=== PATIENT | female | born 1975 | race Two or more races ===

== ENCOUNTER 2025-03-16 08:00 | Outpatient (CLI) | payer OTHER ==
[~2025-03-16] VITALS: Ht 157.5 cm; Wt 72.6 kg
[2025-03-16] MEDS ORDERED: TENORMIN50 M1 PO (14:27)
[2025-03-16 15:23] LABS: RH POSITIVE
== END 2025-03-16 08:01 | disposition home or self-care (01) ==
LOC: LAB 08:00 → EDSTATUS 12:15 → SURG 12:15
PROVIDERS: ATTEND Obstetrics & Gynecology Gynecology
DX: N84.0 Polyp of corpus uteri (principal); N94.4 Primary dysmenorrhea; N83.202 Unspecified ovarian cyst, left side; K57.20 Diverticulitis of large intestine with perforation and abscess without bleeding

== ENCOUNTER 2025-07-13 10:30 | Inpatient (IN) | payer OTHER ==
[~2025-07-13] VITALS: Ht 157.5 cm; Wt 73.5 kg
[~2025-07-13 10:30] MED LIST: TENORMIN50 M1 PO
[2025-07-19] MEDS ORDERED: CEFTRIAXONE SODIUM 2,000 MG VIAL ONE (09:12)
[2025-07-19] MEDS ORDERED: METRONIDAZOLE/SODIUM CHLORIDE 500 MG/100 ML PIGGYBACK IV ONE ×2 (09:12→13:00)
[2025-07-19] MEDS ORDERED: POVIDONE-IODINE 118 ML BOTT TOP ONE ×2 (09:12→13:00)
[2025-07-19] MEDS ORDERED: SUGAMMADEX SODIUM 200 MG/2 ML VIAL IV ONE ×2 (11:21→13:00)
[2025-07-19] MEDS ORDERED: VISTASEAL DUAL APPICATOR 1 EACH APPL TOP ONE ×2 (11:21→13:00)
[2025-07-19] MEDS ORDERED: THROMBIN,HU/FIBRINOGEN/CALCIUM 10 ML SYRINGE TOP ONE ×2 (11:21→13:00)
[2025-07-19] MEDS ORDERED: CEFTRIAXONE SODIUM 2,000 MG VIAL IV ONE (13:00)
[2025-07-19] MEDS ORDERED: MORPHINE SULFATE 4 MG/ML CARTRIDGE IV PRN (14:45)
[2025-07-19] MEDS ORDERED: OxyCODONE HCL 5 MG TABLET (ROXICODONE) PO PRN (14:45)
[2025-07-19] MEDS ORDERED: RINGERS SOLUTION,LACTATED 1,000 ML IV SCH (14:45)
[2025-07-19] MEDS ORDERED: ONDANSETRON HCL 2 MG/ML VIAL IV PRN (14:45)
[2025-07-19] MEDS ORDERED: ONDANSETRON HCL 2 MG/ML VIAL ONE (15:22)
[2025-07-19] MEDS ORDERED: ENALAPRILAT DIHYDRATE 1.25 MG/ML VIAL IV PRN (15:30)
[2025-07-19] MEDS ORDERED: PROMETHAZINE HCL 25 MG/ML AMPUL ONE ×2 (16:11→16:19)
[2025-07-19] MEDS ORDERED: PANTOPRAZOLE SODIUM 40 MG/VIAL VIAL ONE (16:22)
[2025-07-19] MEDS ORDERED: PANTOPRAZOLE SODIUM 40 MG/VIAL VIAL IV ONE (16:45)
[2025-07-19] MEDS ORDERED: HYOSCYAMINE SULFATE 0.125 MG TAB.SUBL SL SCH (17:00)
[2025-07-19] MEDS ORDERED: SIMETHICONE 125 MG CAPSULE PO SCH (17:00)
[2025-07-19] MEDS ORDERED: GABAPENTIN 300 MG CAPSULE PO SCH (17:00)
[2025-07-19 19:35] LABS: BASO % 0.2 % (0.1-1.2); EOS # 0.00 (0.04-0.54); EOS % 0.0 % (0.7-7.0); LYMPH # 0.53 (1.18-3.74); LYMPH % 2.3 % (19.3-53.1); MEAN PLATELET VOLUME 9.40 fl (9.4-12.4); MONO # 1.01 (0.24-0.82); MONO % 4.4 % (4.7-12.5); NEUT # 21.04 (1.56-6.13); NEUT % 92.7 % (34.0-71.1); RED CELL DISTRIBUTION WIDTH 15.8 % (11.6-14.4)
[2025-07-19] MEDS ORDERED: ACETAMINOPHEN 500 MG GEL..CAP PO SCH (20:00)
[2025-07-19 20:31] VITALS: BP 145/80
[2025-07-19] MEDS ORDERED: CELECOXIB 200 MG CAPSULE PO SCH (21:00)
[2025-07-19] MEDS ORDERED: FAMOTIDINE/PF 20 MG/2 ML VIAL IV PUSH SCH (21:00)
[2025-07-20 00:39] VITALS: BP 152/99; O2SAT 99
[2025-07-20 00:40] VITALS: BP 160/80
[2025-07-20 04:00] VITALS: BP 135/86
[2025-07-20 06:50] LABS: BASO % 0.3 % (0.1-1.2); EOS # 0.01 (0.04-0.54); EOS % 0.1 % (0.7-7.0); LYMPH # 1.02 (1.18-3.74); LYMPH % 5.4 % (19.3-53.1); MEAN PLATELET VOLUME 9.60 fl (9.4-12.4); MONO # 1.01 (0.24-0.82); MONO % 5.4 % (4.7-12.5); NEUT # 16.58 (1.56-6.13); NEUT % 88.5 % (34.0-71.1); RED CELL DISTRIBUTION WIDTH 15.5 % (11.6-14.4)
[2025-07-20 07:19] LABS: BUN CREA RATIO 8.0 (7.0-25.0); CREATININE SERUM 0.52 mg/dL (0.55-1.02); GFR 124.82; GLUCOSE FASTING 120.0 mg/dL (65-100); OSMOLALITY SERUM 276.0 MOSM/KG (275-295)
[2025-07-20 08:00] VITALS: BP 111/74
[2025-07-20] MEDS ORDERED: ATENOLOL 50 MG TABLET PO SCH (09:00)
[2025-07-20] MEDS ORDERED: ENOXAPARIN SODIUM 40 MG/0.4 ML SYRINGE SUBCUTANEO SCH (17:00)
[2025-07-20 17:01] VITALS: BP 108/71; O2SAT 98
[2025-07-21 00:47] VITALS: BP 96/65; O2SAT 97
[2025-07-21 06:30] LABS: BASO % 0.7 % (0.1-1.2); EOS # 0.29 (0.04-0.54); EOS % 2.4 % (0.7-7.0); LYMPH # 1.36 (1.18-3.74); LYMPH % 11.3 % (19.3-53.1); MEAN PLATELET VOLUME 10.00 fl (9.4-12.4); MONO # 0.92 (0.24-0.82); MONO % 7.6 % (4.7-12.5); NEUT # 9.40 (1.56-6.13); NEUT % 77.8 % (34.0-71.1); RED CELL DISTRIBUTION WIDTH 15.9 % (11.6-14.4)
[2025-07-21 06:56] LABS: BUN CREA RATIO 20.0 (7.0-25.0); CREATININE SERUM 0.61 mg/dL (0.55-1.02); GFR 103.82; GLUCOSE FASTING 91.0 mg/dL (65-100); OSMOLALITY SERUM 281.0 MOSM/KG (275-295)
[2025-07-21] MEDS ORDERED: LEVSIN/SL0.125 MG SL (07:54)
[2025-07-21] MEDS ORDERED: NEURONTIN300 MG PO (07:54)
[2025-07-21] MEDS ORDERED: INTESTINEX680 M1 PO (07:55)
[2025-07-21] MEDS ORDERED: ENOXAPARIN SODIUM 40 MG/0.4 ML SYRINGE SUBCUTANEO SCH (09:00)
== END 2025-07-21 11:18 | disposition home or self-care (01) | DRG 742 ==
LOC: O/R 07-19 07:00 → OB/GYN 07-19 07:00 → SURG 07-19 07:00 → O/R 07-19 09:30 → SURG 07-19 10:30 → OB/GYN 07-19 16:01
PROVIDERS: Internal Medicine Geriatric Medicine; Obstetrics & Gynecology Gynecology; Surgery; Urology; ADMIT Student in an Organized Health Care Education/Training Program; ATTEND Student in an Organized Health Care Education/Training Program
PROC: 0DTJ4ZZ Resection of Appendix, Percutaneous Endoscopic Approach (ICD-10-PCS; 2025-07-19)
PROC: 0DTN4ZZ Resection of Sigmoid Colon, Percutaneous Endoscopic Approach (ICD-10-PCS; 2025-07-19)
PROC: 0DBP4ZZ Excision of Rectum, Percutaneous Endoscopic Approach (ICD-10-PCS; 2025-07-19)
PROC: 0DJD8ZZ Inspection of Lower Intestinal Tract, Via Natural or Artificial Opening Endoscopic (ICD-10-PCS; 2025-07-19)
PROC: 4A1BXSH Monitoring of Gastrointestinal Vascular Perfusion using Indocyanine Green Dye, External Approach (ICD-10-PCS; 2025-07-19)
PROC: 0T788DZ Dilation of Bilateral Ureters with Intraluminal Device, Via Natural or Artificial Opening Endoscopic (ICD-10-PCS; 2025-07-19)
PROC: 0UT74ZZ Resection of Bilateral Fallopian Tubes, Percutaneous Endoscopic Approach (ICD-10-PCS; principal; 2025-07-19 07:00)
PROC: 0UT94ZZ Resection of Uterus, Percutaneous Endoscopic Approach (ICD-10-PCS; 2025-07-19 07:00)
PROC: 0DT84ZZ Resection of Small Intestine, Percutaneous Endoscopic Approach (ICD-10-PCS; 2025-07-19 07:00)
DX: N85.02 Endometrial intraepithelial neoplasia [EIN] (principal); K57.20 Diverticulitis of large intestine with perforation and abscess without bleeding; N94.4 Primary dysmenorrhea; I10 Essential (primary) hypertension